=== PATIENT | female | born 1985 | race American Indian/Alaskan Native ===

== ENCOUNTER 2022-12-29 17:38 | Emergency (ER) | payer MEDICAID ==
[2022-12-29 17:55] VITALS: BP 131/81; PULSE 132
[2022-12-29] MEDS ORDERED: Sodium Chloride 0.9% 1,000 ML IV ONE (18:26)
[2022-12-29] MEDS ORDERED: Sodium Chloride 0.9% 10 ML Syringe FLUSH PRN (18:26)
[2022-12-29 18:33] LABS: AMPHETAMINES,URINE POSITIVE (NEGATIVE); BARBITURATES,URINE NEGATIVE (NEGATIVE); BENZODIAZEPINE,URINE NEGATIVE (NEGATIVE); MDMA (ECSTASY), URINE NEGATIVE (NEGATIVE); METHADONE,URINE NEGATIVE (NEGATIVE); METHAMPHETAMINES,URINE POSITIVE (NEGATIVE); OPIATES,URINE NEGATIVE (NEGATIVE); OXYCODONE,URINE NEGATIVE (NEGATIVE); PHENCYCLIDINE,URINE NEGATIVE (NEGATIVE); TCA,URINE NEGATIVE (NEGATIVE)
[2022-12-29 18:47] LABS: ANION GAP 12.5 mEq/L (7-13); CHLORIDE,CL 101 mmol/L (98-107); SODIUM,NA 138 mmol/L (136-145)
[2022-12-29] MEDS ORDERED: cefTRIAXone 1 GM Vial IVPUSH ONE (18:48)
[2022-12-29 18:49] LABS: ESTIMATED GFR 94 mL/min (>=60)
[2022-12-29 19:01] LABS: CORONAVIRUS COVID-19 NAA NEGATIVE (NEGATIVE); RESPIRATORY SYNCYTIAL VIR NAA NEGATIVE (NEGATIVE)
[2022-12-29] MEDS ORDERED: Iopamidol 755 Mg/ML 100 ML Bottle IVPUSH ONE (19:30)
[2023-01-04 11:47] LABS: C.TRACHOMATIS BY TMA Negative (Negative); N.GONORRHOEAE BY TMA Negative (Negative)
== END 2022-12-29 21:36 | disposition home or self-care (01) ==
LOC: DL.ED 17:38
DX: N39.0 Urinary tract infection, site not specified (principal); F15.10 Other stimulant abuse, uncomplicated; Z20.822 Contact with and (suspected) exposure to COVID-19; Z72.0 Tobacco use
CPT/HCPCS: 0241U; 36415; 71045; 71275; 80053; 80305-QW; 80307; 81001; 84484; 85025; 85379; 87086; 87088; 87186; 87491; 87563; 87591; 93005; 93010; 96361; 96374; 99284; 99285-25; J0696; J3490; J7030; Q9967